=== PATIENT | male | born 1990 | race American Indian/Alaskan Native ===

== ENCOUNTER 2020-03-30 08:42 | Emergency (ER) | payer SELFPAY ==
[2020-03-30 08:56] VITALS: BP 148/99
--- NOTE | 2020-03-30 10:21 | Ultrasound Report ---
US testicular doppler comp INDICATION / CLINICAL INFORMATION: PAIN SWELLING. COMPARISON: None available. FINDINGS: Both testicles are normal. Color Doppler imaging shows normal vascularity in each testicle. Left epididymis is unremarkable. Right epididymis is edematous, with increased vascularity, suggestin g epididymitis. Moderate-sized right hydrocele. IMPRESSION: 1. Findings suggest right epididymitis. Signer Name: Josue Burden MD Signed: 03/30/2020 10:16 AM Workstation Name: [email or web address]
[2020-03-30] MEDS ORDERED: LIDOCAINE-MPF (1%) 10 MG/1 ML VIAL 5 ML INFILTRATI ONE (11:28)
--- NOTE | 2020-03-30 11:28 | Emergency Department Report ---
ED Male HPI - General Chief complaint: Urogenital-Male Stated complaint: TESTICLE PAIN Time Seen by Provider: 03/30/20 11:23 Source: patient Mode of arrival: Ambulatory Limitations: No Limitations - History of Present Illness Initial comments: Patient is a 29-year-old male presents emergency room with complaints of right- sided testicular pain and swelling that began 3 days ago. He states a week ago he was at work pushing a luis daniel and states that it rolled backwards and hit him in the groin but he was not having pain at that time. He states that this morning he began noticing yellow penile discharge. He states he has mild dysuria. He states he has some lower abdominal discomfort. He denies any fever, nausea, vomiting, diarrhea, lesions, blisters, back pain, hematuria, urinary retention. He states he has a past medical history of epididymitis 10 years ago. Allergies medications. He states he is sexually active without protection. - Related Data Previous Rx's Medication Instructions Recorded Last Taken Type Doxycycline Hyclate [Doxycycline 100 mg PO BID 10 Days #20 tab 03/30/20 Unknown Rx Hyclate TAB] Naproxen [EC-Naproxen] 500 mg PO BID PRN #14 tablet. 03/30/20 Unknown Rx Allergies Allergy/AdvReac Type Severity Reaction Status Date / Time No Known Allergies Allergy Unverified 03/30/20 08:52 ED Review of Systems ROS: Stated complaint: TESTICLE PAIN Other details as noted in HPI Comment: All other systems reviewed and negative ED Past Medical Hx - Past Medical History Previous Medical History?: No - Surgical History Past Surgical History?: No - Social History Smoking Status: Current Every Day Smoker Substance Use Type: Alcohol, Marijuana - Medications Home Medications: Home Medications Medication Instructions Recorded Confirmed Last Taken Type Doxycycline Hyclate [Doxycycline 100 mg PO BID 10 Days #20 tab 03/30/20 Unknown Rx Hyclate TAB] Naproxen [EC-Naproxen] 500 mg PO BID PRN #14 tablet. 03/30/20 Unknown Rx ED Physical Exam - General Limitations: No Limitations General appearance: alert, in no apparent distress - Head Head exam: Present: atraumatic, normocephalic - Eye Eye exam: Present: normal appearance - ENT ENT exam: Present: mucous membranes moist - Respiratory Respiratory exam: Absent: respiratory distress, accessory muscle use - GI/Abdominal GI/Abdominal exam: Present: soft. Absent: distended, tenderness, guarding, rebound, rigid - exam: Present: other (right sided epididymal and testicular tenderness palpation, there is associated edema in the epididymal region,no lesions or blisters, normal testicular lie, normal cremasteric reflex, entry level management:haley, tech) - Back Exam Back exam: Absent: CVA tenderness (R), CVA tenderness (L) - Neurological Exam Neurological exam: Present: alert, oriented X3 - Psychiatric Psychiatric exam: Present: normal affect, normal mood - Skin Skin exam: Present: warm, dry, intact ED Course Vital Signs 03/30/20 03/30/20 08:54 12:52 Temperature 98.1 F Pulse Rate 90 89 Respiratory 18 18 Rate Blood Pressure 148/99 O2 Sat by Pulse 97 99 Oximetry ED Medical Decision Making - Lab Data Lab Results 03/30/20 Range/Units Unknown Urine Color Yellow (Yellow) Urine Turbidity Cloudy (Clear) Urine pH 5.0 (5.0-7.0) Ur Specific Boyd 1.026 (1.003-1.030) Urine Protein 100 mg/dl (Negative) mg/dL Urine Glucose (UA) Neg (Negative) mg/dL Urine Ketones Neg (Negative) mg/dL Urine Blood Mod (Negative) Urine Nitrite Neg (Negative) Urine Bilirubin Neg (Negative) Urine Urobilinogen 2.0 (<2.0) mg/dL Ur Leukocyte Esterase Lg (Negative) Urine WBC (Auto) > 182.0 H (0.0-6.0) /HPF Urine RBC (Auto) 38.0 (0.0-6.0) /HPF Urine Mucus 1+ /HPF - Radiology Data Radiology results: report reviewed Ordering Physician: ANTHONY ABDULLAHI MD Date of Service: 03/30/20 Procedure(s): US testicular doppler comp Accession Number(s): [id number] cc: ANTHONY ABDULLAHI MD US testicular doppler comp INDICATION / CLINICAL INFORMATION: PAIN SWELLING. COMPARISON: None available. FINDINGS: Both testicles are normal. Color Doppler imaging shows normal vascularity in each testicle. Left epididymis is unremarkable. Right epididymis is edematous, with increased vascularity, suggesting epididymitis. Moderate-sized right hydrocele. IMPRESSION: 1. Findings suggest right epididymitis. Signer Name: Josue Burden MD Signed: 03/30/2020 10:16 AM Workstation Name: [email or web address] Transcribed By: TM Dictated By: Josue Burden MD Electronically Authenticated By: Josue Burden MD Signed Date/Time: 03/30/20 1016 DD/ 1006 TD/TT: - Medical Decision Making Patient is a 29-year-old male presents emergency room with complaints of right- sided testicular pain and swelling that began 3 days ago. He states a week ago he was at work pushing a luis daniel and states that it rolled backwards and hit him in the groin but he was not having pain at that time. He states that this morning he began noticing yellow penile discharge. He states he has mild dysur ia. He states he has some lower abdominal discomfort. He denies any fever, nausea, vomiting, diarrhea, lesions, blisters, back pain, hematuria, urinary retention. He states he has a past medical history of epididymitis 10 years ago. Allergies medications. He states he is sexually active without protection. VSS. on exam: right sided epididymal and testicular tenderness palpation, there is associated edema in the epididymal region,no lesions or blisters, normal testicular lie, normal cremasteric reflex, entry level management:garrett de leon. testicular US: 1. Findings suggest right epididymitis. UA with many white blood cells, red blood cells and large leukocyte esterase. G/C sent from patient's urine. Patient treated for gonorrhea while in the ED with ceftriaxone IM. Patient given prescription for 7-day course of doxycycline to cover for chlamydia. Patient given prescription for naproxen for pain. Discussed all results with patient and answered questions. Advised patient epididymitis is likely related to STD. Advised patient Please take medication as prescribed. 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 Please follow-up with the clinic or the health department for full STD panel. Please have any partner tested and treated as well. Avoid sexual intercourse for 10 days after completing medication. Return to emergency room for any new or worsening symptoms. - Differential Diagnosis STD, UTI, urethritis, orchitis, hydrocele, torsion, epididymitis Critical care attestation.: If time is entered above; I have spent that time in minutes in the direct care of this critically ill patient, excluding procedure time. ED Disposition Clinical Impression: Epididymitis Disposition: DC-01 TO HOME OR SELFCARE Is pt being admited?: No Does the pt Need Aspirin: No Condition: Stable Instructions: Epididymitis, Testicular Self-Exam, [id number], Testicular Self-Exam, Epididymitis (ED) Additional Instructions: Please take medication as prescribed. 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 Please follow-up with the clinic or the health department for full STD panel. Please have any partner tested and treated as well. Avoid sexual intercourse for 10 days after completing medication. Return to emergency room for any new or worsening symptoms. Prescriptions: Doxycycline Hyclate [Doxycycline Hyclate TAB] 100 mg PO BID 10 Days #20 tab Naproxen [EC-Naproxen] 500 mg PO BID PRN #14 tablet.dr GRIFFIN Reason: pain Referrals: [facility] [Outside] - 2-3 Days [facility] [Provider Group] - 2-3 Days Forms: STI Treatment and Prevention, Work/School Release Form(ED) Time of Disposition: 11:34 Print Language: GEORGIAN
[2020-03-30 12:23] LABS: Bilirubin,Urine NEG (Negative); Blood,Urine MOD (Negative); Color,Urine Yellow (Yellow); Mucus,Urine 1+ /HPF; WBC,Urine > 182.0 /HPF (0.0-6.0)
== END 2020-03-30 12:52 | disposition home or self-care (01) ==
LOC: ED 08:42
DX: N45.1 Epididymitis (principal); F17.200 Nicotine dependence, unspecified, uncomplicated; F12.10 Cannabis abuse, uncomplicated
CPT/HCPCS: 81001; 87591; 93975; 96372; 99284; J0696